=== PATIENT | female | born 1945 | race Caucasian/White ===

== ENCOUNTER 2020-09-29 10:27 | Emergency (ER) | payer OTHER ==
[~2020-09-29] VITALS: Ht 167.6 cm; Wt 109.8 kg
--- NOTE | 2020-09-29 10:35 | NUR ---
PT BIB FROM HOME TO ER BED 09 FOR VERTIGO. PT IS AAO, VERBALLY RESPONSIVE STATING SHE FEELS DIZZY (ROOM SPINNING SENSATION) UPON WAKING UP. DENIES CHEST PAIN OR ANY DISCOMFORT. STABLE VITALS. NAD NOTED. AWAITNG MD RAMIREZ.
--- NOTE | 2020-09-29 10:46 | NUR ---
DR HERRING AT BEDSIDE FOR EVAL.
[2020-09-29] MEDS ORDERED: ONDANSETRON HCL/PF 4 MG/2 ML VIAL ONE ×2 (10:54→12:56)
--- NOTE | 2020-09-29 10:55 | NUR ---
IV LINE STARTED BLOOD DRAWN AND SENT TO LAB.
[2020-09-29 11:00] LABS: BASOPHILS # (AUTO) 0.1 K/uL (0.0-0.2); BASOPHILS % (AUTO) 0.8 % (0.0-2.0); EOSINOPHILS % (AUTO) 2.1 % (0.0-6.0); HEMATOCRIT 50 % (33-45); HEMOGLOBIN 16.6 g/dL (11.5-14.8); LYMPHOCYTES # (AUTO) 1.2 K/uL (0.8-4.8); LYMPHOCYTES % (AUTO) 12.3 % (20.0-44.0); MEAN CORPUSCULAR HGB CONC 33 g/dl (31.0-36.0); MEAN CORPUSCULAR VOLUME 87 fL (82-100); MONOCYTES # (AUTO) 0.6 K/uL (0.1-1.30); MONOCYTES % (AUTO) 5.9 % (2.0-12.0); NEUTROPHILS # (AUTO) 7.9 K/uL (1.8-8.9); NEUTROPHILS % (AUTO) 78.9 % (43.0-81.0); PLATELET COUNT (AUTO) 217 K/uL (150-450); RED BLOOD CELL COUNT(AUTO) 5.72 MIL/uL (4.0-5.2)
[2020-09-29] MEDS ORDERED: IV NS 0.9% 500 ML BAG IV ONE (11:00)
[2020-09-29] MEDS ORDERED: ONDANSETRON HCL/PF 4 MG/2 ML VIAL IVP ONE (11:00)
[2020-09-29 11:10] LABS: CALCIUM, SERUM 8.9 mg/dL (8.5-10.1); CARBON DIOXIDE 24 mmol/L (21-32); CHLORIDE 103 mmol/L (98-107); CREATININE 1.1 mg/dL (0.6-1.3); GLUCOSE 105 mg/dL (74-106); SODIUM SERUM 139 mmol/L (136-145); UREA NITROGEN, BLOOD 15 mg/dL (7-18)
[2020-09-29 11:15] LABS: ALANINE AMINOTRANSFERASE 20 U/L (12-78); ALBUMIN 3.2 g/dL (3.4-5.0); ALKALINE PHOSPHATASE 68 U/L (46-116); ASPARTATE AMINOTRANSFERASE 15 U/L (15-37); BILIRUBIN,DIRECT 0.1 mg/dL (0.0-0.2); BILIRUBIN,TOTAL 0.6 mg/dL (0.2-1.0); TOTAL PROTEIN, SERUM 7.4 g/dL (6.4-8.2)
--- NOTE | 2020-09-29 12:43 | NUR ---
PT TO RADIOLOGY FOR ABDOMINAL CT SCAN VIA [facility].
[2020-09-29] MEDS ORDERED: ONDANSETRON HCL/PF - ER 4 MG/2 ML VIAL IV ONE (13:00)
[2020-09-29 13:18] LABS: BILIRUBIN,URINE Negative (NEGATIVE); COLOR,URINE YELLOW (YELLOW); LEUKOCYTE ESTERASE ,URINE Trace (NEGATIVE); NITRITE, URINE Positive (NEGATIVE); PROTEIN,URINE Negative (NEGATIVE); UGLUCOSE Negative (NEGATIVE); UROBILINOGEN,URINE 0.2 EU/dL (0.2)
[2020-09-29 13:19] LABS: BACTERIA,URINE 1+ /HPF (None Seen); RBC,URINE 0-2 /HPF (0-2); SQUAMOUS EPITHELIAL CELL,UR Few /HPF (None Seen)
[2020-09-29] MEDS ORDERED: CEFTRIAXONE 1GM BAG (ER ONLY) 50 ML IV ONE (13:40)
[2020-09-29] MEDS ORDERED: CEFTRIAXONE 1GM BAG (ER ONLY) 1 GM/50 ML PIGGYBACK IV ONE (14:00)
[2020-09-29] MEDS ORDERED: CEPH500T PO (14:12)
[2020-09-29 15:04] VITALS: BP 144/80
--- NOTE | 2020-09-29 15:04 | NUR ---
Patient discharged to home in stable condition. Written and verbal after care instructions given. Patient verbalizes understanding of instruction.IV removed. Catheter intact and site benign. Pressure and 4x4 applied to site. No bleeding noted.
== END 2020-09-29 15:04 | disposition home or self-care (01) ==
LOC: ER 10:29
DX: R11.0 Nausea (principal); N12 Tubulo-interstitial nephritis, not specified as acute or chronic; I12.9 Hypertensive chronic kidney disease with stage 1 through stage 4 chronic kidney disease, or unspecified chronic kidney disease; N18.9 Chronic kidney disease, unspecified
CPT/HCPCS: 36415; 74176; 80048; 80076; 81001; 84484; 85025; 87077; 87086; 87186; 93005; 96365; 96375; 96376; 99285; J0696; J2405 ×2; J7040